=== PATIENT | male | born 1985 | race Caucasian/White ===

== ENCOUNTER 2018-10-26 22:09 | Emergency (ER) | payer OTHER ==
[2018-10-26 22:21] VITALS: O2SAT 100
[2018-10-26] MEDS ORDERED: Sodium Chloride 0.9% 1,000 ML IV ONE (22:51)
--- NOTE | 2018-10-26 22:53 | C.PDOC ---
History Of Present Illness 33 yo male, no prior hx, presnets for eval. states felt dizzy for a few seconds while standing. resolved at this. requesting blood work to r/o anemia as he was previously anemic, although unsure of his previous h/h. no other complaints. on phone in [facility] [place]. Time Seen by Provider: 10/26/18 22:24 Chief Complaint (Nursing): Dizziness/Lightheaded Past Medical History Reviewed: Historical Data, Nursing Documentation, Vital Signs Vital Signs: Last Vital Signs Temp 97.5 F L 10/26/18 22:17 Pulse 78 10/26/18 22:17 Resp 20 10/26/18 22:17 BP 124/77 10/26/18 22:17 Pulse Ox 100 10/26/18 22:17 - Medical History PMH: Anemia Family History: States: Unknown Family Hx - Social History Hx Alcohol Use: No Hx Substance Use: No Review Of Systems Neurological: Positive for: Dizziness Physical Exam - Physical Exam Appears: Well, No Acute Distress Skin: Normal Color, Warm, Dry Eye(s): bilateral: Normal Inspection, PERRL, EOMI Nose: Normal Throat: Normal Neck: Normal Cardiovascular: Rhythm Regular Respiratory: Normal Breath Sounds Gastrointestinal/Abdominal: Normal Exam Back: Normal Inspection Extremity: Normal ROM Neurological/Psych: Oriented x3, Normal Speech, Normal Cognition, Normal Cranial Nerves, No Cerebellar Signs, Normal Motor, Normal Sensation ED Course And Treatment - Laboratory Results Result Diagrams: 10/26/18 23:16 10/26/18 23:16 O2 Sat by Pulse Oximetry: 100 Medical Decision Making Medical Decision Making: r/o anemia pt well appearing neuro intact on phone in [facility]. ekg nsr [address] twave changes. labs neg no cardiopulm complaints neuro intact steady gait stable for dc. Disposition - Disposition Referrals: [facility] [Outside] [facility] [Outside] Disposition: HOME/ ROUTINE Disposition Time: 22:00 Condition: STABLE Additional Instructions: return to [place] with worsening symptoms or concerns. see clinic in next 1 - 2 days Instructions: Dizziness, Nonvertigo, (DC) Forms: [employer] ([place]) - Clinical Impression Clinical Impression: Dizziness
[2018-10-26] MEDS ORDERED: Sodium Chloride 0.9% 1,000 ML ONE (23:00)
[2018-10-26 23:20] LABS: BASO # 0.1 K/uL (0.0-0.2); BASO % 0.7 % (0.0-2.0); EOS # 0.1 K/uL (0.0-0.7); EOS % 1.2 % (0.0-4.0); HEMOGLOBIN 13.7 g/dL (12.0-18.0); LYMPH # 2.6 K/uL (1.0-4.3); LYMPH % 28.3 % (20.0-40.0); MEAN CELL VOLUME 78.3 fL (80.0-94.0); MEAN CORPUSCULAR HEMOGLOBIN 25.4 pg (27.0-31.0); MEAN CORPUSCULAR HGB CONC 32.4 g/dL (33.0-37.0); MEAN PLATELET VOLUME 6.7 fL (7.2-11.7); MONO # 0.8 K/uL (0.0-0.8); MONO % 8.2 % (0.0-10.0); NEUT # 5.7 K/uL (1.8-7.0); NEUT % 61.6 % (50.0-75.0); RBC 5.38 Mil/uL (4.40-5.90); RED CELL DISTRIBUTION WIDTH 15.2 % (11.5-14.5); WHITE BLOOD COUNT 9.3 K/uL (4.8-10.8)
[2018-10-26 23:31] LABS: INR 1.2; PROTHROMBIN TIME 12.8 SECONDS (9.7-12.2)
[2018-10-26 23:33] LABS: ALB/GLOB RATIO 1.1 (1.0-2.1); ALBUMIN 4.1 g/dL (3.5-5.0); ALT/SGPT 33 U/L (21-72); AST/SGOT 24 U/L (17-59); BLOOD UREA NITROGEN 15 mg/dL (9-20); CALCIUM 8.7 mg/dl (8.6-10.4); GFR NON-AFRICAN AMERICAN > 60
[2018-10-27 00:50] VITALS: BP 121/69; PULSE 69; RESP 18; TEMP 98.7
--- NOTE | 2018-10-27 12:17 | CARD ---
APPROVED REPORT Date of service: 10/26/2018 EKG Measurement Heart [id number] <Conclusion> Normal sinus rhythm Normal ECG
== END 2018-10-27 00:51 | disposition home or self-care (01) ==
LOC: EDBD 22:09 → C.ER 22:09
DX: R42 Dizziness and giddiness (principal); D64.9 Anemia, unspecified
CPT/HCPCS: 80053; 85025; 85610; 85730; 86850; 86900; 93005; 96360; 99285; J7030